=== PATIENT | male | born 1995 | race Hispanic/Latino ===

== ENCOUNTER 2020-11-15 11:55 | Emergency (ER) | payer OTHER ==
[~2020-11-15] VITALS: Ht 160 cm; Wt 84.0 kg
[2020-11-15] MEDS ORDERED: MOTRIN400 MG/TAB PO (14:10)
[2020-11-15 14:25] VITALS: BP 130/81
== END 2020-11-15 14:25 | disposition home or self-care (01) | DRG 556 ==
LOC: ED 11:55
DX: M25.512 Pain in left shoulder (principal); W01.0XXA Fall on same level from slipping, tripping and stumbling without subsequent striking against object, initial encounter